=== PATIENT | male | born 1980 | race Caucasian/White ===

== ENCOUNTER 2021-06-12 10:01 | Emergency (ER) | payer BC ==
--- NOTE | 2021-06-12 10:23 | EDM.PDOC ---
ED HPI GENERAL MEDICAL PROBLEM - General Chief Complaint: Upper Extremity Injury/Pain Stated Complaint: POSSIBLY PULLED OUT BICEP Time Seen by Provider: 06/12/21 10:12 - History of Present Illness INITIAL COMMENTS - FREE TEXT/NARRATIVE: History of present illness: [] At about 10 AM today the patient was curling a barbell with 80 pounds and his left bicep suddenly ripped and shortened. He has severe pain there. He does not feel like he can flex his arm. He is able to hold it flexed but not flex it any further than 90 degrees. The patient has worse pain when he tries to move it. The pain is sharp. There are no other associated injuries. Review of systems: As per history of present illness and below otherwise all systems reviewed and negative. Past medical history: As per history of present illness and as reviewed below otherwise noncontributory. Surgical history: As per history of present illness and as reviewed below otherwise noncontributory. Social history: No reported history of drug or alcohol abuse. Family history: As per history of present illness and as reviewed below otherwise noncontributory. Physical exam: Constitutional - well developed, well-nourished and in no acute distress HEENT - normocephalic, no evidence of trauma - external nose and mouth normal - no mass in neck and no JVD - mucosae moist EYES - full EOM, PERRL, no icterus - no evidence of inflammation, injection, or drainage Respiratory - no respiratory distress, equal bilateral expansion Vascular-good capillary refill in the warm pink digits of the left upper extremity with good pulses Musculoskeletal otherwise no gross deformity of long bones or joints - no tenderness, swelling or edema Neurologic -patient has a shortened by 5 steps in the left upper extremity so that relative to the right it looks like it is flexed even when he is at rest. The patient is unable to flex beyond 90 degrees. When he is flexed at 90 degrees he is able to resist gravity. Median ulnar and radial motor sensory function intact. Alert and oriented times four - CN II-XII grossly intact - motor sensory and coordination symmetrically normal Psychiatric - appropriate mood and affect with normal thought content Hematologic - No petechiae or purpura - mucosa appropriate color and sclera not pale - normal nail bed color and refill Integument - no rash or evidence of trauma - normal turgor Diagnostics: [] Therapeutics: [] Impression: [] Plan: [] Definitive disposition and diagnosis as appropriate pending reevaluation and review of above. - Related Data Allergies Allergy/AdvReac Type Severity Reaction Status Date / Time morphine Allergy Vomiting Verified 06/12/21 10:12 Home Meds: Home Meds Acetaminophen/oxyCODONE [Percocet 325-10 MG] 1 tab PO Q4H PRN #12 tab 06/12/21 [Rx] Review of Systems - Review of Systems Review Of Systems: Comprehensive ROS is negative, except as noted in HPI. ED EXAM, GENERAL - Physical Exam Exam: See Below Free Text/Narrative:: My physical exam is in the HPI Course - Vital Signs Text/Narrative:: Discussed with Dr. Toussaint at [facility] and he said to call the orthopedic number there and they would refer him early next week to one of the sports leadership instructor. He wanted a sling in the interim. DME-sling applied for rupture of biceps tendon to avoid further damage and should be worn for 2 weeks. Departure - Departure Time of Disposition: 10:35 Disposition: Home, Self-Care 01 Condition: Good Clinical Impression: Rupture of distal biceps tendon - Discharge Information Instructions: Distal Biceps Tendon Tear Referrals: PCP,None [Primary Care Provider] - Aaron Toussaint MD [Ordering Only Provider] - Additional Instructions: I have spoken with Dr. Toussaint at [facility]. He said to call [phone] tomorrow. Let them know that we spoke. Let them know that you need to be seen early this week. In the meantime wear the sling and do not do any further damage. Ice pack should be held for [address] Conner said most likely the switchboard would refer you to one of the sports psychologist. [facility] [address] [place] [id number] [address] [facility] [address] [place], [address] [place] [address]
[2021-06-12] MEDS ORDERED: Ketorolac 30 MG/ML SDV IM STA (10:32)
== END 2021-06-12 11:02 | disposition home or self-care (01) ==
LOC: MW.ED 10:01
DX: S46.212A Strain of muscle, fascia and tendon of other parts of biceps, left arm, initial encounter (principal); Z88.5 Allergy status to narcotic agent; X50.0XXA Overexertion from strenuous movement or load, initial encounter
CPT/HCPCS: 96372; 99283; J1885